=== PATIENT | male | born 1955 | race Caucasian/White ===

== ENCOUNTER 2023-07-11 05:22 | Outpatient (CLI) | payer MEDICARE, SELFPAY ==
[2023-07-11 12:33] LABS: Calculated LDL 148 mg/dL (<100); Cholesterol 202 mg/dL (<200); HDL Cholesterol 40 mg/dL (40-60); Triglyceride 74 mg/dL (<150)
[2023-07-11 19:36] LABS: PSA, Screening 0.8 ng/mL (<=4.5)
== END 2023-07-11 05:23 | disposition home or self-care (01) ==
LOC: LOS 05:22
PROVIDERS: PCP Nurse Practitioner Family; Visit Provider Nurse Practitioner Family
DX: Z13.6 Encounter for screening for cardiovascular disorders (principal); Z13.1 Encounter for screening for diabetes mellitus; Z12.5 Encounter for screening for malignant neoplasm of prostate
CPT/HCPCS: 36415; 80061; 84153; 83036

== ENCOUNTER → 2023-10-02 09:26 | Outpatient (CLI) | payer MEDICARE, SELFPAY ==
--- NOTE | 2023-10-02 15:16 | DI.RAD_ITS ---
Exam(s) XR HIP RT COMPLETE AP PELVIS EXAM: XR HIP RT COMPLETE AP PELVIS CLINICAL HISTORY: WORSENING PAIN, G89.29. TECHNIQUE: 2D digital imaging was performed. Three views COMPARISON: No exams were available for comparison FINDINGS: BONES: No acute fracture is present. No bony destructive lesion is seen. JOINTS: No dislocation present. Mild bilateral hip joint space narrowing. Mild bilateral acetabular spurring. Small subchondral cysts seen in the superior lateral right acetabulum. The SI joints and pubic symphysis are unremarkable. SOFT TISSUE: Normal. IMPRESSION: Xopi-gy-[id number] degenerative changes of the right hip. DATA REPOSITORY: RADIATION DOSE DELIVERED:
== END ==
PROVIDERS: PCP Nurse Practitioner Family; Visit Provider Nurse Practitioner Family
DX: M16.11 Unilateral primary osteoarthritis, right hip
CPT/HCPCS: 73502

== ENCOUNTER → 2023-12-21 14:42 | Outpatient (BNVA) | payer MEDICARE, SELFPAY | PROVIDERS: PCP Nurse Practitioner Family; Referring Provider Nurse Practitioner Family; Visit Provider Student in an Organized Health Care Education/Training Program | DX: M16.11 Unilateral primary osteoarthritis, right hip (principal) | CPT/HCPCS: 20610; 99205; J1010 ==

== ENCOUNTER → 2024-09-05 14:06 | Outpatient (BNVA) | payer MEDICARE, SELFPAY | PROVIDERS: PCP Nurse Practitioner Family; Referring Provider Nurse Practitioner Family; Visit Provider Surgery | DX: R10.31 Right lower quadrant pain (principal) | CPT/HCPCS: 99203 ==

== ENCOUNTER 2024-12-26 13:12 | Outpatient (CLI) | payer MEDICARE, SELFPAY ==
[2024-12-26 13:17] VITALS: BP 127/80; PULSE 52; RESP 20; TEMP 37; O2SAT 97
[2024-12-26 14:32] VITALS: PULSE 59; O2SAT 97
[2024-12-26] MEDS: Nerve Block Tray 1 EACH MC (14:41)
[2024-12-26] MEDS: methylPREDNISolone ACETATE 40 MG/ML VIAL IJ (14:41)
[2024-12-26] MEDS: Bupivacaine 0.5% Pres-Free 10 ML VIAL IJ (14:42)
[2024-12-26] MEDS: Lidocaine 2% Multi-Dose 20 ML VIAL IJ (14:42)
--- NOTE | 2025-01-09 12:55 | PDOC.PAIN ---
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 Pre-procedure Pain Score: 5/10 Patient was interviewed and the medical record reviewed. There were no medical, pharmacologic, radiographic, or other structural contraindications to preforming an ultrasound guided injection. Risks and expected side effects as well as potential benefits of the procedure were reviewed. The patient consent form was signed and witnessed. Standard time-out procedure was performed. The use of direct ultrasound visualization of the needle (rather than a non-guided injection) was required to increase patient safety by excluding inadvertent intramuscular, intratendinous, or intraneural needle placement and minimizing bleeding by avoiding osteochondral or vascular injury from the needle. Additionally, the increased accuracy of placement may increase clinical effectiveness and will allow higher diagnostic specificity when evaluating effectiveness of this injection. Procedure Description: The patient was placed in the supine position and automated blood pressure cuff and pulse oximeter applied for monitoring during the procedure and recorded in the medical record. Pre-injection ultrasound scanning of the area of interest was performed using Linear transducer, identifying relevant anatomy, landmarks, and neurovascular structures allowing for optimal needle path. The site was then prepared in the usual sterile fashion, using thorough Chlorhexadine preparation of the skin and sterile draping. The same ultrasound transducer was then passed into the sterile field using sterile probe cover and sterile ultrasound gel. The injection target was again visualized. Skin and subcutaneous tissues were anesthetized with 2 mL of 1% Lidocaine. A 20G [place] ultrasound 3.5 inch needle was placed under live ultrasound guidance, using an in-plane approach, to the target area. After visualization of the needle tip at the target area, 1 cc of Dexamethasone (10mg/cc) followed by 4 cc of 2% Lidocaine was delivered after negative aspiration for blood. Ultrasound images were captured and stored for documentation purposes. Post-procedure Pain Score:0/10 Vital signs were stable throughout the procedure and were as recorded in the docflowsheet by the nursing staff. Follow up plans and appointments were discussed with the patient.Post procedure instruction was given as documented in nursing documentation and having met discharge criteria, they were discharged from the [facility]. COMMENTS: he tolerated the procedure well Royer Steward DO, MPH [facility] - [facility] Coding Conscious Sedation used for procedure: No CPT Codes: Iliohypogastric Ilioinguinal - 36865 ([id number] ~G) Additional Codes: Date of Service (08691) Date of service: 12/26/24 Diagnoses: Genitofemoral neuralgia
== END 2024-12-26 13:13 | disposition home or self-care (01) ==
LOC: PC 13:12
PROVIDERS: PCP Nurse Practitioner Family; Visit Provider Preventive Medicine Occupational Medicine
DX: M25.551 Pain in right hip (principal); G57.21 Lesion of femoral nerve, right lower limb
CPT/HCPCS: 64425; J0665; J1010; J2003